=== PATIENT | female | born 1985 | race Caucasian/White ===

== ENCOUNTER 2016-08-27 09:09 | Emergency (ER) | payer OTHER ==
[~2016-08-27] VITALS: Ht 175.3 cm; Wt 54.5 kg
[2016-08-27 09:12] VITALS: BP 108/70; PULSE 89; TEMP 98.3
[2016-08-27] MEDS ORDERED: DOXYCYCLINE HY100 MG PO (10:27)
== END 2016-08-27 10:55 | disposition home or self-care (01) ==
LOC: COL.ER 09:09
DX: L03.115 Cellulitis of right lower limb (principal)